=== PATIENT | female | born 1950 | race Asian ===

== ENCOUNTER 2018-11-05 06:07 | Inpatient (IN) | payer MEDICAID ==
[~2018-11-05] VITALS: Ht 154.9 cm; Wt 51.8 kg
[~2018-11-05 06:07] MED LIST: ASPI81TA39 PO; CALC-461 PO; GEMF600T5 PO; INSU100C14 SQ; INSU100I26 SQ; METF-960 PO; RINGERS SOLUTION,LACTATED 1,000 ML IV ONE; ZOSY3375FZ IV
[2018-11-05] MEDS ORDERED: RINGERS SOLUTION,LACTATED 1,000 ML IV ONE (06:14)
[2018-11-05] MEDS ORDERED: FERR-82 PO (06:37)
[2018-11-05] MEDS ORDERED: INSU100V SQ (06:37)
[2018-11-05] MEDS ORDERED: LISI-660 PO (06:37)
[2018-11-05 06:58] LABS: BASOPHILS % (AUTO) 0.8 % (0.0-2.0); EOSINOPHILS % (AUTO) 4.5 % (1.0-6.0); HEMATOCRIT 30.6 % (36-46); HEMOGLOBIN 9.9 g/dL (12.0-16.0); LYMPHOCYTES # (AUTO) 2.2 K/uL (1.0-4.8); LYMPHOCYTES % (AUTO) 31.3 % (22.0-44.0); MEAN CORPUSCULAR HEMOGLOBIN 25.7 pg (26.0-34.0); MEAN CORPUSCULAR HGB CONC 32.3 G/dL (31.0-37.0); MEAN CORPUSCULAR VOLUME 80 fL (80-100); MONOCYTES # (AUTO) 0.4 K/uL (0.1-1.0); MONOCYTES % (AUTO) 6.2 % (2.0-9.0); NEUTROPHILS % (AUTO) 57.2 % (40.0-70.0); PLATELET COUNT (AUTO) 293 K/uL (150-450); RED BLOOD CELL COUNT(AUTO) 3.85 MIL/uL (4.00-5.20); RED CELL DISTRIBUTION WIDTH 16.2 % (11.5-14.5)
[2018-11-05] MEDS ORDERED: CeFAZolin 2 GM/DEXTROSE 50 ML IV ONE ×2 (07:00→07:07)
[2018-11-05] MEDS ORDERED: SODIUM CL IRRIG SOLN BAG 3,000 ML IRRIG ONE (07:05)
[2018-11-05] MEDS ORDERED: BUPIVACAINE HCL/PF 0.25% 30 ML VIAL ONE (07:05)
[2018-11-05 07:09] LABS: CALCIUM, TOTAL 9.3 mg/dL (8.8-10.5); CREATININE 1.17 mg/dL (0.60-1.30); POTASSIUM 3.8 mmol/L (3.5-5.1)
[2018-11-05] MEDS ORDERED: ACETAMINOPHEN 1000 MG/ISO-OSM 100 ML IV ONE (07:09)
[2018-11-05 07:14] LABS: INR 0.9 (0.9-1.1); PROTHROMBIN TIME 9.8 SEC (9.4-11.6)
[2018-11-05 07:15] LABS: ALBUMIN 3.7 g/dL (3.4-5.0); BILIRUBIN,TOTAL 0.3 mg/dL (0.1-1.0); TOTAL PROTEIN, SERUM 8.6 g/dL (6.4-8.2)
[2018-11-05] MEDS ORDERED: HYDROmorphone 2 MG/ML SYRINGE IVP PRN (08:30)
[2018-11-05] MEDS ORDERED: FentaNYL CITRATE-PF 100 MCG/2 ML VIAL IVP PRN (08:30)
[2018-11-05] MEDS ORDERED: ZOLPIDEM TARTRATE 5 MG TABLET PO PRN (08:45)
[2018-11-05] MEDS ORDERED: DOCUSATE SODIUM 250 MG CAPSULE PO PRN (08:45)
[2018-11-05] MEDS ORDERED: MORPHINE SULFATE 4 MG/ML SYRINGE IVP PRN (08:45)
[2018-11-05] MEDS ORDERED: DEXTROSE 50%-WATER 25 GM/50 ML SYRINGE IVP PRN (09:00)
[2018-11-05 10:54] VITALS: BP 140/67
[2018-11-05] MEDS: HYDROCODONE/ACETAMINOPHEN 5-325 MG TABLET PO PRN ×2 (14:08→18:03)
[2018-11-05] MEDS ORDERED: ACET-784 PO (14:43)
[2018-11-05] MEDS ORDERED: DSS100 PO (14:44)
[2018-11-05] MEDS ORDERED: HYDR-4061 PO (14:45)
[2018-11-05] MEDS ORDERED: SODIUM CHLORIDE 0.9% 500 ML IV ONE (16:06)
[2018-11-05 16:35] VITALS: BP 98/54
[2018-11-05 16:44] VITALS: BP 105/64
[2018-11-05] MEDS: MetFORMIN HCL 500 MG TABLET PO SCH (17:57)
[2018-11-05] MEDS: GEMFIBROZIL 600 MG TABLET PO SCH (17:57)
[2018-11-05 18:00] VITALS: BP 107/59
[2018-11-05] MEDS: INSULIN LISPRO 100 UNITS/ML SQ PRN (21:02)
[2018-11-05 21:03] LABS: GLUCOMETER DEV NAME(LOC) 6N.1; GLUCOSE,POINT OF CARE 96 MG/DL (70-110)
[2018-11-05 21:03] LABS: GLUCOMETER DEV NAME(LOC) 6N.2; GLUCOSE,POINT OF CARE 133 MG/DL (70-110)
[2018-11-05] MEDS: OXYGEN THERAPY IH SCH (21:03)
[2018-11-05 21:21] VITALS: BP 108/62
[2018-11-05 23:33] VITALS: BP 102/59
[2018-11-06 00:03] LABS: GLUCOMETER DEV NAME(LOC) 6N.2; GLUCOSE,POINT OF CARE 99 MG/DL (70-110)
[2018-11-06 04:28] VITALS: BP 115/63
[2018-11-06] MEDS ORDERED: ONDANSETRON HCL 4 MG/2 ML VIAL IVP ONE (05:53)
[2018-11-06] MEDS ORDERED: ROCURONIUM BROMIDE 10 MG/ML 5 ML VIAL IVP ONE (05:53)
[2018-11-06] MEDS ORDERED: PROPOFOL 1% 20 ML VIAL IVP ONE (05:53)
[2018-11-06] MEDS ORDERED: GLYCOPYRROLATE 0.2 MG/ML VIAL IM ONE (05:53)
[2018-11-06] MEDS ORDERED: FentaNYL CITRATE-PF 100 MCG/2 ML VIAL IVP ONE (05:53)
[2018-11-06] MEDS ORDERED: NEOSTIGMINE METHYLSULFATE 1 MG/ML 10 ML VIAL IVP ONE (05:53)
[2018-11-06] MEDS ORDERED: LIDOCAINE/PF 2% 5 ML VIAL IM ONE (05:53)
[2018-11-06] MEDS: INSULIN LISPRO 100 UNITS/ML SQ PRN ×2 (06:31→13:12)
[2018-11-06] MEDS: GEMFIBROZIL 600 MG TABLET PO SCH (06:32)
[2018-11-06 07:03] LABS: GLUCOMETER DEV NAME(LOC) 6N.1; GLUCOSE,POINT OF CARE 162 MG/DL (70-110)
[2018-11-06] MEDS: MetFORMIN HCL 500 MG TABLET PO SCH (07:58)
[2018-11-06] MEDS ORDERED: FERROUS SULFATE 325 MG EC TABLET PO SCH (08:00)
[2018-11-06] MEDS: OXYGEN THERAPY IH SCH (08:00)
[2018-11-06 08:13] VITALS: BP 106/63
[2018-11-06] MEDS ORDERED: CALCIUM OYSTER SHELL 250 MG-VIT D3 125 UNITS TABLET PO SCH (09:00)
[2018-11-06] MEDS ORDERED: ONDANSETRON HCL 4 MG/2 ML VIAL IVP PRN (10:15)
[2018-11-06 11:24] VITALS: BP 116/64
[2018-11-06 13:03] LABS: GLUCOMETER DEV NAME(LOC) 6N.1; GLUCOSE,POINT OF CARE 166 MG/DL (70-110)
[2018-11-06 17:14] LABS: GLUCOMETER DEV NAME(LOC) 6N.1; GLUCOSE,POINT OF CARE 123 MG/DL (70-110)
[2018-11-06] MEDS ORDERED: LISINOPRIL 5 MG TABLET PO SCH (21:00)
== END 2018-11-06 17:30 | disposition home or self-care (01) | DRG 951 ==
LOC: SDS 06:07 → EDSTATUS 07:30 → 6N 10:12
PROVIDERS: ADMIT Obstetrics & Gynecology; ATTEND Obstetrics & Gynecology
PROC: 0UT24ZZ Resection of Bilateral Ovaries, Percutaneous Endoscopic Approach (ICD-10-PCS; 2018-11-05)
PROC: 0UT64ZZ Resection of Left Fallopian Tube, Percutaneous Endoscopic Approach (ICD-10-PCS; principal; 2018-11-05 07:30)
DX: R19.00 Intra-abdominal and pelvic swelling, mass and lump, unspecified site (principal); N70.11 Chronic salpingitis; Z40.02 Encounter for prophylactic removal of ovary(s); Z80.41 Family history of malignant neoplasm of ovary
CPT/HCPCS: 87081; 88305; 88307; 93005; G0378; J0131; J0690; J2405; J2704; J3010; J3490; J7040; J7120

== ENCOUNTER 2019-06-29 11:23 | Emergency (ER) | payer MEDICAID ==
[~2019-06-29] VITALS: Ht 157.5 cm; Wt 50.0 kg
[~2019-06-29 11:23] MED LIST changes: +ACET-784 PO; +DSS100 PO; +FERR-82 PO; +HYDR-4061 PO; -INSU100C14 SQ; -INSU100I26 SQ; +INSU100V SQ; +LISI-660 PO; -RINGERS SOLUTION,LACTATED 1,000 ML IV ONE; -ZOSY3375FZ IV
[2019-06-29] MEDS ORDERED: ONDANSETRON HCL 4 MG/2 ML VIAL IVP ONE (12:30)
[2019-06-29 13:22] LABS: BASOPHILS % (AUTO) 0.5 % (0.0-2.0); EOSINOPHILS % (AUTO) 1.7 % (1.0-6.0); HEMATOCRIT 32.6 % (36-46); HEMOGLOBIN 10.7 g/dL (12.0-16.0); LYMPHOCYTES % (AUTO) 23.2 % (22.0-44.0); MEAN CORPUSCULAR HEMOGLOBIN 26.6 pg (26.0-34.0); MEAN CORPUSCULAR HGB CONC 32.7 G/dL (31.0-37.0); MEAN CORPUSCULAR VOLUME 81 fL (80-100); MONOCYTES # (AUTO) 0.3 K/uL (0.1-1.0); MONOCYTES % (AUTO) 3.1 % (2.0-9.0); NEUTROPHILS # (AUTO) 6.1 K/uL (1.8-7.7); NEUTROPHILS % (AUTO) 71.5 % (40.0-70.0); PLATELET COUNT (AUTO) 165 K/uL (150-450)
[2019-06-29 13:30] LABS: CALCIUM, TOTAL 9.2 mg/dL (8.8-10.5); CREATININE 1.08 mg/dL (0.60-1.30); POTASSIUM 4.3 mmol/L (3.5-5.1)
[2019-06-29 13:36] LABS: ALBUMIN 3.7 g/dL (3.4-5.0); BILIRUBIN,TOTAL 0.4 mg/dL (0.1-1.0)
[2019-06-29] MEDS ORDERED: PB/HYOSCY/ATR/SCOP/LIDO/MAALOX 55 ML BOTTLE PO ONE (14:30)
[2019-06-29] MEDS ORDERED: RANITIDINE HCL 150 MG TABLET PO ONE (14:30)
[2019-06-29 16:54] LABS: APPEARANCE,URINE CLEAR (CLEAR); BILIRUBIN,URINE NEGATIVE (NEGATIVE); GLUCOSE, URINE (UA) NEGATIVE (NEGATIVE); KETONES,URINE NEGATIVE (NEGATIVE); LEUKOCYTE ESTERASE ,URINE NEGATIVE (NEGATIVE); NITRATE,URINE NEGATIVE (NEGATIVE); OCCULT BLOOD,URINE NEGATIVE (NEGATIVE); PROTEIN,URINE NEGATIVE (NEGATIVE); UROBILINOGEN,URINE 0.2 mg/dL (<=1.0)
[2019-06-29 18:05] VITALS: BP 126/75
== END 2019-06-29 18:40 | disposition home or self-care (01) ==
LOC: EMS 11:24
DX: K29.70 Gastritis, unspecified, without bleeding (principal); N73.9 Female pelvic inflammatory disease, unspecified; I10 Essential (primary) hypertension; E11.9 Type 2 diabetes mellitus without complications; Z98.890 Other specified postprocedural states; Z79.899 Other long term (current) drug therapy
CPT/HCPCS: 36415; 71045; 80053; 81003; 82550; 82962; 83690; 83880; 84484; 85025; 93005; 96374; 99285; J2405